=== PATIENT | female | born 1935 | race African-American/Black ===

== ENCOUNTER 2019-08-20 18:05 | Inpatient (IN) ==
[2019-08-20] MEDS ORDERED: ACETAMINOPHEN 500 MG TABLET PO STA (18:42)
[2019-08-20] MEDS ORDERED: SODIUM CHLORIDE 0.9% 500 ML IV STA ×2 (18:42→20:22)
[2019-08-20] MEDS ORDERED: LEVOFLOXACIN INJ 750 MG in PREMIX 1 EACH IV STA (18:51)
[2019-08-20 19:52] LABS: Basophils % 0.1 % (0.0-0.8); Hematocrit 30.2 VOL% (35.7-47.0); Hemoglobin 9.5 GM/DL (12.0-16.0); Immature Granulocytes % 0.4 %; Immature Granulocytes Absolute 0.03 #; Lymphocytes # 1.6 10*3/uL (1.4-4.0); Lymphocytes % 22.9 % (21.3-54.2); Mean Corpuscular HGB Conc 31.5 GM/DL (32-36); Mean Corpuscular Volume 93.5 FL (87-102); Mean Platelet Volume 10.5 FL (9.6-12.0); Monocytes % 8.2 % (1.7-12.7); Neutrophils % 68.4 % (38.7-73.9); Platelet Count 126 T/CUMM (130-400); Red Blood Count 3.23 MC/CUMM (3.8-5.5); Red Cell Distribution Width 14.4 % (9.3-17.3); White Blood Count 7.1 T/CUMM (4-12)
[2019-08-20] MEDS ORDERED: ACETAMINOPHEN 650 MG SUPP RECTAL ONE (19:53)
[2019-08-20 20:15] LABS: PT Patient Result 10.9 SECS (9.8-11.9)
[2019-08-20 20:18] LABS: Alanine Aminotransferase 38 U/L (13-56); Albumin 2.4 G/DL (3.4-5.0); Alkaline Phosphatase 76 U/L (45-117); Aspartate Amino Transferase 124 U/L (0-37); Bilirubin,Total < 0.39 MG/DL (0.2-1.0); Blood Urea Nitrogen 93 MG/DL (7-18); Calcium 7.1 MG/DL (8.5-10.1); Estimated Glom Filtration Rate 13 ML/MIN; Ferritin 180.7 ng/ml (8-252); Glucose 205 MG/DL (74-106); Osmolality,Calculated 300.4 MOS/KG (273-304); Total Protein 6.4 G/DL (6.4-8.3)
[2019-08-20] MEDS ORDERED: ENOXAPARIN 30 MG/0.3 ML SYRINGE SUBCUT STA (20:22)
[2019-08-20] MEDS ORDERED: CALCIUM GLUCONATE 1,000 MG in SODIUM CHLORIDE 0.9% 100 ML IV ONE (20:23)
[2019-08-20 20:44] LABS: Bilirubin,Urine Negative (Negative); Glucose,Urine (UA) 50 mg/dL (Negative); Ketones,Urine Negative (Negative); Nitrite,Urine Negative (Negative); Protein,Urine >=500 MG/DL; Urine Appearance Slightly Cloudy (Clear); Urine Color Amber (Yellow); Urine Specific Gravity 1.015 (1.001-1.035)
[2019-08-20 20:45] LABS: Blood, Urine Moderate mg/dL (Negative); RBC,Urine Rare /HPF (0-4); Squamous Epithelial Cell,Urine Few /HPF (0-10); Urine Urobilinogen 0.2 EU/DL (0.2-1.0); WBC,Urine Occasional /HPF (0-6)
[2019-08-20] MEDS ORDERED: ACETAMINOPHEN 650 MG SUPP RECTAL STA (21:42)
[2019-08-20] MEDS ORDERED: ENOXAPARIN 100 MG/ML SYRINGE SUBCUT ONE (22:11)
[2019-08-20] MEDS ORDERED: CALCIUM GLUCONATE 1,000 MG/10 ML VIAL IV ONE (22:12)
[2019-08-20] MEDS ORDERED: AZITHROMYCIN INJ 500 MG in SODIUM CHLORIDE 0.9% 250 ML IV SCH (22:30)
[2019-08-20] MEDS ORDERED: DOCUSATE SODIUM 100 MG CAPSULE PO PRN (22:31)
[2019-08-20] MEDS ORDERED: guaiFENesin/DM ER 600-30 MG TABLET PO PRN (22:31)
[2019-08-20] MEDS ORDERED: ACETAMINOPHEN 325 MG TABLET PO PRN (22:31)
[2019-08-20] MEDS ORDERED: diphenhydrAMINE CAP 25 MG CAPSULE PO PRN (22:31)
[2019-08-20] MEDS ORDERED: GLUCAGON 1 MG VIAL IM PRN (22:31)
[2019-08-20] MEDS ORDERED: ONDANSETRON 4 MG/2 ML VIAL IV PRN (22:31)
[2019-08-20] MEDS ORDERED: DEXTROSE 50% 25 GM/50 ML VIAL IV PRN ×2 (22:31)
[2019-08-20] MEDS ORDERED: PROMETHAZINE 25 MG/1 ML VIAL IM PRN (22:31)
[2019-08-20] MEDS ORDERED: ZALEPLON 5 MG CAPSULE PO PRN (22:31)
[2019-08-20] MEDS ORDERED: hydrALAZINE 20 MG/1 ML VIAL IV PRN (22:31)
[2019-08-20] MEDS ORDERED: NICOTINE 21 MG/24 HR PATCH TRANSDERM PRN (22:31)
[2019-08-20] MEDS ORDERED: DEXTROSE 50% 25 GM/50 ML VIAL IV STA (22:49)
[2019-08-20] MEDS ORDERED: INSULIN REGULAR 100 UNIT/ML IV ONE (22:49)
[2019-08-20] MEDS ORDERED: DEXTROSE 50% 25 GM/50 ML SYRINGE IV ONE (23:03)
[2019-08-20] MEDS ORDERED: VANCOMYCIN INJ 1,500 MG in SODIUM CHLORIDE 0.9% 500 ML IV PRN (23:14)
[2019-08-21] MEDS: SODIUM CHLORIDE 0.9% 1,000 ML IV SCH ×3 (00:50→13:56)
[2019-08-21] MEDS: MEROPENEM 500 MG in SODIUM CHLORIDE 0.9% 100 ML IV SCH (00:51)
[2019-08-21] MEDS ORDERED: VANCOMYCIN INJ 2,000 MG in SODIUM CHLORIDE 0.9% 500 ML IV ONE (02:00)
[2019-08-21 07:26] LABS: Basophils % 0.2 % (0.0-0.8); Hematocrit 29.1 VOL% (35.7-47.0); Immature Granulocytes % 0.5 %; Immature Granulocytes Absolute 0.03 #; Lymphocytes # 1.6 10*3/uL (1.4-4.0); Lymphocytes % 25.6 % (21.3-54.2); Mean Corpuscular HGB Conc 30.9 GM/DL (32-36); Mean Corpuscular Volume 94.2 FL (87-102); Mean Platelet Volume 11.1 FL (9.6-12.0); Monocytes % 6.5 % (1.7-12.7); Neutrophils % 67.2 % (38.7-73.9); Platelet Count 121 T/CUMM (130-400); Red Blood Count 3.09 MC/CUMM (3.8-5.5); Red Cell Distribution Width 14.6 % (9.3-17.3); White Blood Count 6.1 T/CUMM (4-12)
[2019-08-21] MEDS: INSULIN LISPRO 100 UNIT/ML SUBCUT SCH ×4 (07:52→21:34)
[2019-08-21 07:57] LABS: Albumin 2.1 G/DL (3.4-5.0); Bilirubin,Total 0.4 MG/DL (0.2-1.0); Calcium 7.1 MG/DL (8.5-10.1); Total Protein 6.3 G/DL (6.4-8.3)
[2019-08-21] MEDS: AZITHROMYCIN 250 MG TABLET PO SCH ×2 (09:01→09:26)
[2019-08-21] MEDS: PANTOPRAZOLE 40 MG TABLET PO SCH ×2 (09:01→09:26)
[2019-08-21] MEDS: HEPARIN 5,000 UNIT/1 ML VIAL SUBCUT SCH ×2 (14:01→21:32)
[2019-08-22] MEDS: MEROPENEM 500 MG in SODIUM CHLORIDE 0.9% 100 ML IV SCH (00:38)
[2019-08-22] MEDS: SODIUM CHLORIDE 0.9% 1,000 ML IV SCH ×3 (00:38→10:18)
[2019-08-22] MEDS: HEPARIN 5,000 UNIT/1 ML VIAL SUBCUT SCH ×2 (06:14→13:23)
[2019-08-22 07:10] LABS: Basophils % 0.1 % (0.0-0.8); Hematocrit 29.5 VOL% (35.7-47.0); Hemoglobin 8.9 GM/DL (12.0-16.0); Immature Granulocytes % 0.3 %; Immature Granulocytes Absolute 0.02 #; Lymphocytes # 1.4 10*3/uL (1.4-4.0); Lymphocytes % 19.6 % (21.3-54.2); Mean Corpuscular HGB Conc 30.2 GM/DL (32-36); Mean Corpuscular Volume 96.1 FL (87-102); Mean Platelet Volume 10.8 FL (9.6-12.0); Monocytes % 8.6 % (1.7-12.7); Neutrophils % 71.4 % (38.7-73.9); Platelet Count 159 T/CUMM (130-400); Red Blood Count 3.07 MC/CUMM (3.8-5.5); Red Cell Distribution Width 14.8 % (9.3-17.3); White Blood Count 7.2 T/CUMM (4-12)
[2019-08-22 07:56] LABS: Calcium 6.9 MG/DL (8.5-10.1); Osmolality,Calculated 320.7 MOS/KG (273-304)
[2019-08-22] MEDS ORDERED: INSULIN REGULAR 10 UNIT, CALCIUM GLUCONATE 1,000 MG in DEXTROSE 10% 250 ML IV STA (08:29)
[2019-08-22] MEDS: SODIUM POLYSTYRENE SULFATE 15 GM/60 ML BOTTLE PO ONE ×2 (10:08→10:29)
[2019-08-22] MEDS: INSULIN LISPRO 100 UNIT/ML SUBCUT SCH ×3 (10:08→16:49)
[2019-08-22] MEDS: PANTOPRAZOLE 40 MG TABLET PO SCH ×2 (10:09→10:28)
[2019-08-22] MEDS: AZITHROMYCIN 250 MG TABLET PO SCH ×2 (10:09→10:30)
[2019-08-22] MEDS ORDERED: SODIUM POLYSTYRENE SULFATE 15 GM/60 ML BOTTLE RECTAL ONE (11:55)
[2019-08-22] MEDS ORDERED: VANCOMYCIN INJ 1,500 MG in SODIUM CHLORIDE 0.9% 500 ML IV ONE (12:00)
[2019-08-22] MEDS ORDERED: SODIUM CHLORIDE 23.4% CONC INJ 38.5 MEQ, SODIUM BICARB INJ 100 MEQ in STERILE WATER INJ... IV SCH (14:00)
[2019-08-22 16:16] VITALS: BP 144/43
[2019-08-22] MEDS ORDERED: SODIUM BICARBONATE 50 MEQ/50 ML VIAL IV ONE (16:33)
== END 2019-08-22 19:58 | disposition expired | DRG 871 ==
LOC: EDUNIT# → EDBD → N.ED 18:05 → SUATTDRO 22:31 → N.EDINP 22:31 → N.2E 23:02
PROVIDERS: ADMIT Internal Medicine; ATTEND Internal Medicine